=== PATIENT | male | born 1930 | race Caucasian/White ===

== ENCOUNTER → 2016-12-31 | Outpatient (CLI) | payer MEDICARE | END | disposition home or self-care (01) | LOC: PCVCCLINIC 10:37 | PROVIDERS: ATTEND Internal Medicine | DX: I10 Essential (primary) hypertension (principal); I35.0 Nonrheumatic aortic (valve) stenosis; E78.5 Hyperlipidemia, unspecified | CPT/HCPCS: 80061; 93005; G0463 ==

== ENCOUNTER → 2017-07-08 | Outpatient (CLI) | payer MEDICARE ==
--- NOTE | 2017-07-08 16:50 | PCVCIMAG ---
APPROVED REPORT Study performed: 07/08/2017 10:02:21 EXAM: Comprehensive 2D, Doppler, and color-flow Echocardiogram Patient Location: Echo lab Status: routine BSA: 1.91 HR: 70 bpmBP: 140/70 mmHg Rhythm: NSR Other Information Study Quality: Good Risk Factors: Cardiac Risk Factors: HTN, Hyperlipidemia Indications Aortic Valve Disease 2D Dimensions LVEF(%): 58.92 (>50%) IVSd: 14.70 (7-11mm)LVOT Diam: 20.00 (18-24mm) LVDd: 35.59 mm PWd: 14.28 (7-11mm)Ascending Ao: 32.29 (22-36mm) LVDs: 24.74 (25-40mm) Left Atrium: 35.74 (27-40mm) Aortic Root: 29.87 mm LV Single Plane 4CH: 57.69 % LV Single Plane 2CH: 61.84 %Ibarra's LVEF: 59.76 % Biplane EF: 60.0 % Volumes Left Atrial Volume (Systole) Single Plane 4CH: 58.24 mLSingle Plane 2CH: 60.74 mL LA ESV Index: 33.00 mL/m2 Aortic Valve AoV Peak Juvenal.: 2.42 m/s AO Peak Gr.: 23.41 mmHgLVOT Max P.08 mmHg AO Mean Gr.: 13.56 mmHgLVOT Mean P.81 mmHg AO V2 Mean: 1.77 m/sLVOT Max V: 1.09 m/s AO V2 VTI: 49.02 cmLVOT Mean V: 0.81 m/s SHASHI (VTI): 1.50 [id number] V1 VTI: 24.11 cm SHASHI Vmax: 1.37 cm2 SV (LVOT): 73.49 mL Mitral Valve E/A Ratio: 0.7 MV Decel. Time: 219.36 ms MV E Max Juvenal.: 0.72 m/s MV A Juvenal.: 0.97 m/s IVRT: 76.12 ms TDI E/Lateral E': 9.40E/Medial E': 14.70 Pulmonary Valve PV Peak Juvenal.: 1.17 m/sPV Peak Gr.: 5.51 mmHg Tricuspid Valve TR Peak Juvenal.: 2.61 m/sRAP Estimate: 7.00 mmHg TR Peak Gr.: 27.20 mmHg PA Pressure: 34.00 mmHg Left Ventricle The left ventricle is normal size. There is normal LV segmental wall motion. Mild concentric left ventricular hypertrophy. Left ventricular systolic function is normal. The left ventricular ejection fraction is within the normal range. LVEF is 60-65%. Grade I - abnormal relaxation pattern. Right Ventricle The right ventricle is normal size. The right ventricular systolic function is normal. Atria Left atrium is at the upper limits of normal. The right atrium size is normal. Aortic Valve Aortic valve leaflets are mildly thickened. No aortic regurgitation is present. Mild aortic stenosis. SHASHI 1.5 cm2 Mitral Valve The mitral valve is normal in structure. There is no mitral valve regurgitation noted. No evidence of mitral valve stenosis. Tricuspid Valve The tricuspid valve is normal in structure. Mild tricuspid regurgitation. Pulmonic Valve The pulmonary valve is normal in structure. There is no pulmonic valvular regurgitation. Great Vessels The aortic root is normal in size. IVC is normal in size and collapses with >50% inspiration Pericardium There is no pericardial effusion. <Conclusion> The left ventricle is normal size. LVEF is 60-65%. Left atrium is at the upper limits of normal. Aortic valve leaflets are mildly thickened. Mild aortic stenosis. SHASHI 1.5 cm2 The mitral valve is normal in structure. The tricuspid valve is normal in structure. Mild tricuspid regurgitation. The pulmonary valve is normal in structure.
== END | disposition home or self-care (01) ==
LOC: PCVCIMAG 09:59
PROVIDERS: ATTEND Internal Medicine
DX: Z01.810 Encounter for preprocedural cardiovascular examination (principal); I08.2 Rheumatic disorders of both aortic and tricuspid valves; I44.4 Left anterior fascicular block; I45.10 Unspecified right bundle-branch block; I10 Essential (primary) hypertension; E78.5 Hyperlipidemia, unspecified; C18.9 Malignant neoplasm of colon, unspecified; M19.90 Unspecified osteoarthritis, unspecified site; Z86.73 Personal history of transient ischemic attack (TIA), and cerebral infarction without residual deficits; Z87.891 Personal history of nicotine dependence; Z79.82 Long term (current) use of aspirin
CPT/HCPCS: 80061; 93306; G0463

== ENCOUNTER → 2017-10-14 | Outpatient (CLI) | payer MEDICARE | END | disposition home or self-care (01) | LOC: PCVCCLINIC 13:19 | PROVIDERS: ATTEND Internal Medicine | DX: Z01.810 Encounter for preprocedural cardiovascular examination (principal); I48.0 Paroxysmal atrial fibrillation; I35.0 Nonrheumatic aortic (valve) stenosis; I10 Essential (primary) hypertension; Z79.82 Long term (current) use of aspirin; Z79.899 Other long term (current) drug therapy; Z87.891 Personal history of nicotine dependence | CPT/HCPCS: 93005; G0463 ==